=== PATIENT | male | born 1940 | race Caucasian/White ===

== ENCOUNTER → 2018-10-13 | Day surgery (SDC) | payer MEDICARE, OTHER ==
[2018-10-11 13:34] LABS: BASOPHILS % 0.5 % (0.0-1.0); EOSINOPHILS # (AUTO) 0.2 (0.0-0.4); EOSINOPHILS % 2.8 % (0.0-6.0); HEMOGLOBIN 14.7 g/dL (14.0-18.0); LYMPHOCYTES # (AUTO) 2.3 (1.0-3.2); LYMPHOCYTES % 27.9 % (18.0-39.1); MEAN CORPUSCULAR HEMOGLOBIN 31.5 pg (28-32); MEAN CORPUSCULAR VOLUME 90.1 fL (81-99); MONOCYTES # (AUTO) 1.1 (0.2-0.8); MONOCYTES % 13.7 % (4.4-11.3); NEUTROPHILS # (AUTO) 4.6 (2.1-6.9); NEUTROPHILS % 54.9 % (38.7-80.0); PLATELET COUNT 228 x10e3/uL (140-360); RED BLOOD COUNT 4.66 x10e6/uL (4.3-5.7); RED CELL DISTRIBUTION WIDTH 12.7 % (11.7-14.4)
[2018-10-11 13:39] LABS: INR 0.93; PARTIAL THROMBOPLASTIN TIME 30.9 seconds (23.8-35.5)
[2018-10-11 13:49] LABS: ALANINE AMINOTRANSFERASE 21 IU/L (0-55); ALBUMIN 3.9 g/dL (3.5-5.0); ALBUMIN/GLOBULIN RATIO 1.4 (0.8-2.0); ALKALINE PHOSPHATASE 62 IU/L (40-150); ANION GAP 12.4 mmol/L (8-16); BLOOD UREA NITROGEN 17 mg/dL (7-26); BUN/CREATININE RATIO 16 (6-25); CALCIUM 10.2 mg/dL (8.4-10.2); CARBON DIOXIDE 26 mmol/L (22-29); CHLORIDE 103 mmol/L (98-107); CREATININE, SERUM 1.08 mg/dL (0.72-1.25); EST GLOMERULAR FILTRATION RATE > 60 ML/MIN (60-); GLUCOSE 106 mg/dL (74-118); POTASSIUM 4.4 mmol/L (3.5-5.1); SODIUM 137 mmol/L (136-145)
[~2018-10-13] MED LIST: CALCIUM PO; FLAXSEED1000 MG PO; LYSINE1000 MG PO; MULTI-VITAMIN1 EACH PO; PROPOFOL IV EMULSION 10 MG/ML 50 ML VIAL ONE; SIMVASTATIN40 MG PO; VIT E PO; ZETIA10 MG PO
--- OUTSIDE RECORDS SUMMARY | 2018-10-13 06:22 | XMS REPORT | Continuity of Care Document ---
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 07/24/2014 [facility] BPH (<span ID="[id number]</span>) Active Problem 07/07/2018 [facility] [place], [place],[facility] Hypercholesterolemia Resolved Problem 07/07/2018 [facility] [place],[facility] Neuropathic pain Res[facility] [place] SYNCOPE AND COLLAPSE Active [facility] Medications Medication Details Route Status Patient Instructions Ordering Provider Order Date Source zinc sulfate 220 mg, 1 cap, Route: PO, Drug form: CAP, Daily, Start date: 05/28/17 9:00:00 ACTIVE DIRECTORY ARCHITECT, Duration: 30 day, Stop date: 06/26/17 9:00:00 CSTNotes: (Zinc sulfate capsule) - 220 mg Zinc sulfate=50 mg elemental zinc Same as Zinc Sulfate No Longer Active 05/28/2017 [facility] oxybutynin 10 mg, 1 tab, Route: PO, Drug form: ERTAB, Daily, Dosing Weight 77.756, kg, Start date: 05/28/17 9:00:00 ACTIVE DIRECTORY ARCHITECT, Duration: 30 day, Stop date: 06/26/17 9:00:00 CSTNotes: (Same as: Ditropan XL) "Do Not Crush" No Longer Active 05/28/2017 [facility] multivitamin 1 tab, Route: PO, Dosing Weight 77.756, kg, Daily, Start date: 05/28/17 9:00:00 ACTIVE DIRECTORY ARCHITECT, Duration: 30 day, Stop date: 06/26/17 9:00:00 ACTIVE DIRECTORY ARCHITECT No Longer Active 05/28/2017 [facility] Zinc Sulfate 140 mg, Route: PO, Daily, Dosing Weight 77.756, kg, Start date: 05/28/17 9:00:00 ACTIVE DIRECTORY ARCHITECT, Duration: 30 day, Stop date: 06/26/17 9:00:00 ACTIVE DIRECTORY ARCHITECT No Longer Active 05/28/2017 [facility] gabapentin 100 MG Oral Capsule 100 mg, 1 cap, Route: PO, Drug form: CAP, BID, Dosing Weight 77.756, kg, Start date: 05/27/17 17:00:00 ACTIVE DIRECTORY ARCHITECT, Duration: 30 day, Stop date: 06/26/17 9:00:00 CSTNotes: (Same as: Neurontin) Inactive 05/27/2017 [facility] aspirin 81 mg tablet, enteric coated 81 mg=1 tab, PO, Daily, # 100 tab, 0 Refill(s) Active 05/27/2017 [facility] multivitamin with minerals 1 tab, Route: PO, Drug Form: TAB, Daily, Start date: 05/27/17 10:00:00 ACTIVE DIRECTORY ARCHITECT, Duration: 30 day, Stop date: 06/26/17 9:00:00 CSTNotes: (Same as:Thera-M, Theragran-M) WASTE: F/P - Black; E - Municipal Trash Bin Give with food. Inactive 05/27/2017 [facility] gabapentin 100 MG Oral Capsule 100 mg=1 cap, PO, BID, # 90 cap, 1 Refill(s) Active 05/27/2017 [facility] Phenergan 12.5 mg, 50 mL, Route: IVPB, Drug form: SOLN, Q6H, Dosing Weight 77.756, kg, PRN Nausea, Start date: 05/26/17 18:30:00 ACTIVE DIRECTORY ARCHITECT, Duration: 30 day, Stop date: 06/25/17 18:29:00 ACTIVE DIRECTORY ARCHITECT No Longer Active 05/27/2017 [facility] Docusate 100 mg, 1 cap, Route: PO, Drug form: CAP, BID, Dosing Weight 81.818, kg, Start date: 05/26/17 17:00:00 ACTIVE DIRECTORY ARCHITECT, Duration: 30 day, Stop date: 06/25/17 9:00:00 CSTNotes: (Same as: Colace) (Do Not Crush) No Longer Active 05/26/2017 [facility] Aspirin 81 mg, 1 tab, Route: PO, Drug form: ECTAB, Daily, Dosing Weight 81.818, kg, Start date: 05/26/17 16:30:00 ACTIVE DIRECTORY ARCHITECT, Duration: 30 day, Stop date: 06/25/17 9:00:00 CSTNotes: Do not crush or chew. (Same As: Ecotrin) No Longer Active 05/26/2017 [facility] Metoprolol 5 mg, 5 mL, Route: IVP, Drug form: INJ, Q6H, Dosing Weight 81.818, kg, PRN Tachycardia, Start date: 05/26/17 15:01:00 ACTIVE DIRECTORY ARCHITECT, Duration: 30 day, Stop date: 06/25/17 15:00:00 CSTNotes: (Same as: Lopressor) Push over 2 minutes No Longer Active 05/26/2017 [facility] Hydralazine 10 mg, 0.5 mL, Route: IVP, Drug form: INJ, Q4H, Dosing Weight 81.818, kg, PRN Hypertension, Start date: 05/26/17 15:01:00 ACTIVE DIRECTORY ARCHITECT, Duration: 30 day, Stop date: 06/25/17 15:00:00 CSTNotes: (Same as: Apres oline) Push over 5 minutes No Longer Active 05/26/2017 [facility] Nitroglycerin 0.4 MG Sublingual Tablet 0.4 mg, 1 tab, Route: SL, Drug form: TAB, Q5Min, Dosing Weight 81.818, kg, PRN Chest Pain, Start date: 05/26/17 15:01:00 ACTIVE DIRECTORY ARCHITECT, Duration: 30 day, Stop date: 06/25/17 15:00:00 CSTNotes: (Same as:Nitroquick, Nitrostat) "Do Not Crush" Sublingual tablet No Longer Active 05/26/2017 [facility] Ondansetron 4 mg, 2 mL, Route: IVP, Drug form: INJ, Q6H, Dosing Weight 81.818, kg, PRN Nausea & Vomiting, Start date: 05/26/17 14:18:00 ACTIVE DIRECTORY ARCHITECT, Duration: 30 day, Stop date: 06/25/17 14:17:00 CSTNotes: (Same as: Anthony) MEDICATION WASTE Product Size: 4 mg Product Wasted: ___ mg No Longer Active 05/26/2017 [facility] Morphine 2 mg, 1 mL, Route: IVP, Drug form: SOLN, Q4H, Dosing Weight 81.818, kg, PRN Pain Score 7-10, Start date: 05/26/17 14:18:00 ACTIVE DIRECTORY ARCHITECT, Duration: 30 day, Stop date: 06/25/17 14:17:00 ACTIVE DIRECTORY ARCHITECT No Longer Active 05/26/2017 [facility] Acetaminophen 325 MG / Hydrocodone Bitartrate 5 MG Oral Tablet 1 tab, Route: PO, Drug Form: TAB, Dosing Weight 81.818, kg, Q4H, PRN Pain Score 4-6, Start date: 05/26/17 14:18:00 ACTIVE DIRECTORY ARCHITECT, Duration: 30 day, Stop date: 06/25/17 14:17:00 CSTNotes: (Same as: Gatzke 325/5) Do not exceed 4gm/day of acetaminophen. No Longer Active 05/26/2017 [facility] Acetaminophen 650 mg, 2 tab, Route: PO, Drug form: TAB, Q4H, Dosing Weight 81.818, kg, PRN Pain 1-3/Temp > 100.4 F, Start date: 05/26/17 14:18:00 ACTIVE DIRECTORY ARCHITECT, Duration: 30 day, Stop date: 06/25/17 14:17:00 CSTNotes: Do not exceed 4 gm/day. (Same as: Tylenol) No Longer Active 05/26/2017 [facility] NS (Bolus) IV 1,000 mL, 1,000 ml/hr, Infuse Over: 1 hr, Route: IV, 1,000, Drug form: INJ, ONCE, Priority: STAT, Dosing Weight 81.818 kg, Start date: 05/26/17 12:04:00 ACTIVE DIRECTORY ARCHITECT, Stop date: 05/26/17 12:04:00 ACTIVE DIRECTORY ARCHITECT Inactive 05/26/2017 [facility] Acetaminophen 300 MG / Codeine Phosphate 30 MG Oral Tablet [Tylenol with Codeine #3] 1 - 2 tab, PO, Q4H, PRN Pain, X 2 day, # 20 tab, 0 Refill(s) No Longer Active 01/30/2016 [facility] Phenazopyridine hydrochloride 200 MG Oral Tablet [Pyridium] 200 mg=1 tab, PO, Q6H, PRN Dysuria, X 7 day, # 28 tab, 1 Refill(s) Active 01/30/2016 [facility] Phenazopyridine hydrochloride 200 MG Oral Tablet [Pyridium] 200 mg=1 tab, PO, Q6H, PRN Dysuria, # 28 tab, 1 Refill(s) Inactive 01/30/2016 [facility] oxybutynin 10 mg oral tablet, extended release 10 mg=1 tab, PO, Daily, # 30 tab, 1 Refill(s) Active 01/30/2016 [facility] Acetaminophen 300 MG / Codeine Phosphate 30 MG Oral Tablet [Tylenol with Codeine #3] 1 - 2 tab, PO, Q4H, PRN Pain, # 20 tab, 0 Refill(s) Inactive 01/30/2016 [facility] ondansetron (ANES) Route: IV, Drug form: INJ, ONCE, Stop date: 01/30/16 11:11:00 CDT Inactive 01/30/2016 [facility] ciprofloxacin (ANES) Route: IV, Drug form: INJ, ONCE, Stop date: 01/30/16 11:11:00 CDT Inactive 01/30/2016 [facility] lidocaine (ANES) Route: IV, Drug form: INJ, ONCE, Stop date: 01/30/16 11:11:00 CDT Inactive 01/30/2016 [facility] dexamethasone (ANES) Route: IV, Drug form: INJ, ONCE, Stop date: 01/30/16 11:11:00 CDT Inactive 01/30/2016 [facility] midazolam (ANES) Route: IV, Drug form: SOLN, ONCE, Stop date: 01/30/16 11:06:00 CDT Inactive 01/30/2016 [facility] propofol (ANES) Route: IV, Drug form: INJ, ONCE, Stop date: 01/30/16 11:06:00 CDT Inactive 01/30/2016 [facility] fentaNYL (ANES) Route: IV, Drug form: INJ, ONCE, Stop date: 01/30/16 11:06:00 CDT Inactive 01/30/2016 [facility] acetaminophen (ANES) (ANES) Route: IV, Drug form: INJ, Start date: 01/30/16 10:35:00 CDT, Stop date: 01/30/16 11:35:00 CDT Inactive 01/30/2016 [facility] LR 1000 mL INJ (ANES) Route: IV, Total Volume: 1,000, Start date: 01/30/16 10:17:00 CDT, Stop date: 01/30/16 11:17:00 CDT Inactive 01/30/2016 [facility] Calcium Chloride 0.0014 MEQ/ML / Potassium Chloride 0.004 MEQ/ML / Sodium Chloride 0.103 MEQ/ML / Sodium Lactate 0.028 MEQ/ML Injectable Solution 1,000 mL, Rate: 25 ml/hr, Infuse over: 40 hr, Route: IV, Dosing Weight 81.818 kg, Total Volume: 1,000, Start date: 01/30/16 9:26:00 CDT, Duration: 30 day, Stop date: 02/29/16 9:25:00 CDT Inactive 01/30/2016 [facility] Fish Oil PO, 0 Refill(s) Active 01/23/2016 [facility] Lysine 1,000 mg, PO, Daily, 0 Refill(s) Active 01/23/2016 [facility] Zinc 140 mg, PO, Daily, 0 Refill(s) Active 01/23/2016 [facility] Calcium 500+D 1 tab, CHEW, BID, 0 Refill(s) Active 01/23/2016 [facility] multivitamin Daily, 0 Refill(s) Active 01/23/2016 [facility] Metronidazole 0.0075 MG/MG Topical Gel 0 Refill(s) Active 01/23/2016 [facility] tamsulosin 0.4 mg oral capsule 0.4 mg=1 cap, PO, Daily, # 30 cap, 0 Refill(s) Active 01/23/2016 [facility] Simvastatin PO, Bedtime, 0 Refill(s) Active 01/23/2016 [facility] Allergies, Adverse Reactions, Alerts Substance Category Reaction Severity Reaction type Status Date Reported Comments Source Immunizations Immunization Date Given Site Status Last Updated Comments Source Results Order Name Results Value Reference Range Date Interpretation Comments Source Neck CTA Neck CTA Clinical Indication: I65.23 Occlusion and stenosis of bilateral carotid arteries - 78-year-old male with syncope and memory difficulties. Comparison: Carotid artery Doppler 06/28/2018. TECHNIQUE: Sequential trans-axial images of the neck were obtained with a multi- detector helical CT after iodinated contrast administration. Coronal and sagittal reconstructions and were obtained, along with 3D post-processing imaging for exam interpretation. CONTRAST: 100 cc of IV Omnipaque contrast material was used for the exam. CT Radiation Dose DLP 1335.23 mGy-cm FINDINGS: CTA NECK: VASCULAR EVALUATION: The origins of the great vessels and visualized upper thoracic aortic arch are unremarkable. The common carotid arteries are patent bilaterally. The left carotid bulb is located at the disc space level of C2-C3 and the right carotid bulb is located at the disc space level of C3-C4. The proximal left internal carotid artery narrows to 2.7 mm just beyond its origin for a 40% stenosis. The entire right internal carotid artery has a caliber below 3 mm. The external carotid artery origins are patent. The cervical internal carotid arteries are patent. The right internal carotid artery caliber diameter is 2.7 mm and the left internal carotid artery caliber diameter is 4.4 mm in the distal internal carotid artery. There is no significant stenosis by NASCET criteria. Bilateral cervical segments of the vertebral arteries are widely patent. The source images show no evidence of dissections. If there is further concern, recommend conventional angiography for complete assessment. Any reported ICA stenosis directly references the distal internal carotid diameter as the denominator for stenosis measurement. NON-VASCULAR STRUCTURES: Mild patchy mucosal thickening is seen in the paranasal sinuses. IMPRESSION: No significant stenosis of the carotid arteries is seen by NASCET criteria. SL: [id number] 07/05/2018 - - Read by: Víctor Shore MD Dictated Date/time: 07/05/18 14:55 Electronically Signed by: Víctor Shore MD 07/05/18 15:09 FINAL REPORT [facility] Carotid artery Doppler bilat US Carotid artery Doppler bilat US Clinical Indication: - chronic arterial ischemic stroke Comparison: Comparison is made to carotid artery ultrasound examination dated 05/26/2017. TECHNIQUE: Hoskins-scale, color Doppler and spectral Doppler of the carotid arteries was performed. NASCET criteria were utilized for interpretation purposes. FINDINGS: RIGHT: Mild echogenic, calcified atherosclerotic plaque identified at the right carotid bulb. ICA PSV 85.6 cm/sec CCA PSV 86.8 cm/sec ICA/CCA ratio 0.94 Vertebral flow is antegrade. External carotid artery is patent. LEFT: Echogenic, calcified atherosclerotic plaque present at the left carotid bulb with extension into the proximal, mid, and distal portions of the left internal carotid artery. ICA PSV 100 cm/sec CCA PSV 114 cm/sec ICA/CCA ratio 0.87 Vertebral flow is antegrade. The left external carotid artery is not clearly visualized on this exam. IMPRESSION: RIGHT: No hemodynamically significant stenosis at the right internal carotid artery by NASCET criteria. LEFT: No hemodynamically significant stenosis at the left internal carotid artery by NASCET criteria. Nonvisualization of the left external carotid artery on this examination. Consensus panel Doppler US criteria for diagnosis of ICA stenosis: Stenosis (%) ICA PSV (cm/sec) ICA/CCA ratio <50 <125 <2.0 50-69 125-230 2.0-4.0 >70 but less than >230 >4.0 near occlusion Near occlusion High, low, or Variable undetectable SL: [id number] 06/28/2018 - - Read by: Tyler Barton MD Dictated Date/time: 06/28/18 11:23 Electronically Signed by: Tyler Barton MD 06/28/18 11:51 FINAL REPORT [facility] [place] Brain wo contrast MRI Brain wo contrast MRI Patient Name: JERARDO MCNEILL. : 1940; Age: 78 years y/o; Male. MR: [id number]. Ordering Physician: Merissa Amaya MD. MRI BRAIN WITHOUT CONTRAST: HISTORY: Cerebral infarction, memory loss, skin cancer. COMPARISON: MRI brain 05/26/2017. FINDINGS: Multiplanar multisequence MR imaging of the brain was performed without the intravenous administration of gadolinium based contrast. There is prominence of the ventricles, cortical sulci and basilar cisterns compatible with age related involutional changes. Stable periventricular and subcortical T2/FLAIR white matter hyperintensities are compatible with stable age-related small vessel microvascular changes. Stable old bilateral basal ganglia lacunar infarcts suspected. There is no evidence of midline shift, mass lesion, intraparenchymal hemorrhage or extra-axial collections. There is no evidence of restricted diffusion to suggest acute infarction. The posterior fossa is unremarkable. The craniocervical junction is within normal limits. The flow-voids at the skull base are unremarkable. The partially visualized orbits, paranasal sinuses and mastoid air cells are unremarkable. IMPRESSION: 1. No evidence of acute intracranial pathology. No interval change since the MRI brain of 05/26/2017. 2. Age related involutional and small vessel microvascular changes as described. Stable old bilateral basal ganglia lacunar infarcts suspected. SL: [id number] 06/28/2018 - - Read by: Gokul Madden MD Dictated Date/time: 06/28/18 11:03 Electronically Signed by: Gokul Madden MD 06/28/18 11:09 FINAL REPORT [facility] CHEM PANEL eGFR 66 mL/min/1.73m2 05/27/2017 Result Comment: The eGFR is calculated using the CKD-EPI formula. In most young, healthy individuals the eGFR will be >90 mL/min/1.73m2. The eGFR declines with age. An eGFR of 60-89 may be normal in some populations, particularly the elderly, for whom the CKD-EPI formula has not been extensively validated. Use of the eGFR is not recommended in the following populations: Individuals with unstable creatinine concentrations, including patients and those with serious co-morbid conditions. Patients with extremes in muscle mass or diet. The data above are obtained from the National Kidney Disease Education Program (NKDEP) which additionally recommends that when the eGFR is used in patients with extremes of body mass index for purposes of drug dosing, the eGFR should be multiplied by the estimated BMI. [facility] CHEM PANEL Creatinine Lvl 1.09 mg/dL 0.50 - 1.40 05/27/2017 [facility] CHEM PANEL BUN 20 mg/dL 7 - 22 05/27/2017 [facility] CHEM PANEL Sodium Lvl 141 meq/L 135 - 145 05/27/2017 [facility] CHEM PANEL Calcium Lvl 8.2 mg/dL 8.5 - 10.5 05/27/2017 [facility] CHEM PANEL AGAP 12.0 meq/L 10.0 - 20.0 05/27/2017 [facility] CHEM PANEL CO2 27 meq/L 24 - 32 05/27/2017 [facility] CHEM PANEL Potassium Lvl 4.0 meq/L 3.5 - 5.1 05/27/2017 [facility] CHEM PANEL Chloride Lvl 106 meq/L 95 - 109 05/27/2017 [facility] CHEM PANEL Glucose Lvl 147 mg/dL 70 - 99 05/27/2017 [facility] CHEM PANEL Magnesium Lvl 2.0 mg/dL 1.8 - 2.4 05/27/2017 [facility] HEMATOLOGY MCH 32.3 pg 27.0 - 31.0 05/27/2017 [facility] HEMATOLOGY RDW 13.5 % 11.5 - 14.5 05/27/2017 [facility] HEMATOLOGY Platelet 183 K/CMM 133 - 450 05/27/2017 [facility] HEMATOLOGY MCHC 35.3 g/dL 32.0 - 36.0 05/27/2017 [facility] HEMATOLOGY MPV 6.9 fL 7.4 - 10.4 05/27/2017 [facility] HEMATOLOGY RBC 4.62 M/CMM 4.70 - 6.10 05/27/2017 [facility] HEMATOLOGY Hct 42.3 % 42.0 - 54.0 05/27/2017 [facility] HEMATOLOGY MCV 91.5 fL 80.0 - 94.0 05/27/2017 [facility] HEMATOLOGY Hgb 14.9 g/dL 14.0 - 18.0 05/27/2017 [facility] HEMATOLOGY WBC 9.2 K/CMM 3.7 - 10.4 05/27/2017 [facility] HEMATOLOGY Segs 75.4 % 45.0 - 75.0 05/27/2017 [facility] HEMATOLOGY Monocytes 13.7 % 2.0 - 12.0 05/27/2017 [facility] HEMATOLOGY Lymphocytes 10.3 % 20.0 - 40.0 05/27/2017 [facility] HEMATOLOGY Eosinophils 0.4 % 0.0 - 4.0 05/27/2017 [facility] HEMATOLOGY Basophils 0.2 % 0.0 - 1.0 05/27/2017 [facility] HEMATOLOGY Lymphocytes # 0.9 K/CMM 1.0 - 5.5 05/27/2017 [facility] HEMATOLOGY Segs-Bands # 6.9 K/CMM 1.5 - 8.1 05/27/2017 [facility] HEMATOLOGY Monocytes # 1.3 K/CMM 0.0 - 0.8 05/27/2017 [facility] LIPIDS Trig 90 mg/dL <=149 mg/dL 05/27/2017 [facility] LIPIDS Chol 186 mg/dL <=199 mg/dL 05/27/2017 [facility] LIPIDS HDL 57 mg/dL >=61 mg/dL 05/27/2017 [facility] LIPIDS CHD Risk 3.26 4.00 - 7.30 05/27/2017 [facility] LIPIDS LDL (Calculated) 111 mg/dL <=99 mg/dL 05/27/2017 [facility] LIPIDS VLDL 18 05/27/2017 [facility] SPECIAL CHEMISTRY Hgb A1C 6.3 % <=5.6 % 05/27/2017 [facility] CHEM PANEL Lactic Acid Lvl 1.5 mMol/L 0.5 - 2.2 05/27/2017 [facility] URINE AND STOOL UA Glucose Negative mg/dL Negative mg/dL 05/26/2017 [facility] URINE AND STOOL UA Bili Negative *NA* (05/26/17 1:30 PM) Negative 05/26/2017 [facility] URINE AND STOOL UA Ketones Negative mg/dL Negative mg/dL 05/26/2017 [facility] URINE AND STOOL UA pH 5.0 5.0 - 8.0 05/26/2017 [facility] URINE AND STOOL UA Blood Negative (05/26/17 1:30 PM) Negative 05/26/2017 [facility] URINE AND STOOL UA Mucus Many /LPF None Seen /LPF 05/26/2017 [facility] URINE AND STOOL UA RBC 2 /HPF 0 - 2 05/26/2017 [facility] URINE AND STOOL UA Protein 30 mg/dL Negative mg/dL 05/26/2017 [facility] URINE AND STOOL UA Leuk Est Negative (05/26/17 1:30 PM) Negative 05/26/2017 [facility] URINE AND STOOL UA Nitrite Negative (05/26/17 1:30 PM) Negative 05/26/2017 [facility] URINE AND STOOL UA WBC 3 /HPF 0 - 5 05/26/2017 [facility] URINE AND STOOL UA Sq Epi Occasional /LPF Few /LPF 05/26/2017 [facility] URINE AND STOOL UA Urobilinogen <=1.0 mg/dL 0.1 - 1.0 05/26/2017 [facility] URINE AND STOOL UA Color Jocelynn *ABN* (05/26/17 1:30 PM) Yellow 05/26/2017 [facility] URINE AND STOOL UA Turbidity Clear (05/26/17 1:30 PM) Clear 05/26/2017 [facility] URINE AND STOOL UA Spec Grav 1.030 <=1.030 05/26/2017 [facility] CARDIAC ENZYMES Troponin-I null 0.00 - 0.40 05/26/2017 [facility] CARDIAC ENZYMES CK MB Index 1.9 0.0 - 2.5 05/26/2017 [facility] CARDIAC ENZYMES CK MB 1.7 ng/mL 0.5 - 3.6 05/26/2017 [facility] CARDIAC ENZYMES Total CK 89 unit/L 12 - 191 05/26/2017 [facility] CHEM PANEL Magnesium Lvl 2.0 mg/dL 1.8 - 2.4 05/26/2017 [facility] CHEM PANEL eGFR 46 mL/min/1.73m2 05/26/2017 Result Comment: The eGFR is calculated using the CKD-EPI formula. In most young, healthy individuals the eGFR will be >90 mL/min/1.73m2. The eGFR declines with age. An eGFR of 60-89 may be normal in some populations, particularly the elderly, for whom the CKD-EPI formula has not been extensively validated. Use of the eGFR is not recommended in the following populations: Individuals with unstable creatinine concentrations, including patients and those with serious co-morbid conditions. Patients with extremes in muscle mass or diet. The data above are obtained from the National Kidney Disease Education Program (NKDEP) which additionally recommends that when the eGFR is used in patients with extremes of body mass index for purposes of drug dosing, the eGFR should be multiplied by the estimated BMI. [facility] CHEM PANEL Calcium Lvl 8.7 mg/dL 8.5 - 10.5 05/26/2017 [facility] CHEM PANEL Creatinine Lvl 1.46 mg/dL 0.50 - 1.40 05/26/2017 [facility] CHEM PANEL CO2 25 meq/L 24 - 32 05/26/2017 [facility] CHEM PANEL Chloride Lvl 104 meq/L 95 - 109 05/26/2017 [facility] CHEM PANEL Sodium Lvl 139 meq/L 135 - 145 05/26/2017 [facility] CHEM PANEL Potassium Lvl 3.9 meq/L 3.5 - 5.1 05/26/2017 [facility] CHEM PANEL BUN 24 mg/dL 7 - 22 05/26/2017 [facility] CHEM PANEL Glucose Lvl 182 mg/dL 70 - 99 05/26/2017 [facility] CHEM PANEL AGAP 13.9 meq/L 10.0 - 20.0 05/26/2017 [facility] CHEM PANEL Lactic Acid Lvl 3.1 mMol/L 0.5 - 2.2 05/26/2017 [facility] HEMATOLOGY MCH 31.5 pg 27.0 - 31.0 05/26/2017 [facility] HEMATOLOGY MPV 6.8 fL 7.4 - 10.4 05/26/2017 [facility] HEMATOLOGY Hgb 16.0 g/dL 14.0 - 18.0 05/26/2017 [facility] Hct 46.7 % 42.0 - 54.0 05/26/2017 [facility] RBC 5.09 M/CMM 4.70 - 6.10 05/26/2017 [facility] WBC 15.1 K/CMM 3.7 - 10.4 05/26/2017 [facility] RDW 13.4 % 11.5 - 14.5 05/26/2017 [facility] Platelet 239 K/CMM 133 - 450 05/26/2017 [facility] MCHC 34.3 g/dL 32.0 - 36.0 05/26/2017 [facility] MCV 91.7 fL 80.0 - 94.0 05/26/2017 [facility] RBC Morph Normal (05/26/17 1:03 PM) 05/26/2017 [facility] Basophils 0.2 % 0.0 - 1.0 05/26/2017 [facility] Plt Morph Normal (05/26/17 1:03 PM) 05/26/2017 [facility] Lymphocytes 2.3 % 20.0 - 40.0 05/26/2017 [facility] Segs 91.4 % 45.0 - 75.0 05/26/2017 [facility] Lymphocytes # 0.3 K/CMM 1.0 - 5.5 05/26/2017 [facility] Monocytes # 0.9 K/CMM 0.0 - 0.8 05/26/2017 [facility] Segs-Bands # 13.8 K/CMM 1.5 - 8.1 05/26/2017 [facility] Monocytes 6.0 % 2.0 - 12.0 05/26/2017 [facility] Eosinophils 0.1 % 0.0 - 4.0 05/26/2017 [facility] Brain wo contrast MRI Brain wo contrast MRI EXAM: MRI BRAIN WITHOUT CONTRAST DATE: 05/26/2017 5:39 PM ACTIVE DIRECTORY ARCHITECT INDICATION: Ataxia. COMPARISON: CT brain dated 05/26/2017. TECHNIQUE: Multiplanar, multisequence MRI imaging of the brain was acquired without intravenous contrast. FINDINGS: The examination is limited by motion artifact. No acute intracranial hemorrhage, midline shift, or mass effect is identified. Few scattered areas of T2/FLAIR signal abnormality are noted within the supratentorial white matter and gail, consistent with chronic microangiopathic changes. Old lacunar infarcts are noted within the basal ganglia bilaterally. The ventricles and sulci are prominent, without evidence for hydrocephalus. No evidence for restricted diffusion is present to suggest an acute infarct. There is no abnormal gradient susceptibility artifact. The orbits, paranasal sinuses, and mastoid air cells are unremarkable. The major intracranial flow voids are maintained. IMPRESSION: 1. No acute intracranial ischemia or infarction. 2. Mild chronic microangiopathic changes and diffuse parenchymal volume loss. 3. Old lacunar infarcts within the basal ganglia bilaterally. SL: [id number] 05/26/2017 - - Read by: Maikel Saba MD Dictated Date/time: 05/26/17 18:41 Electronically Signed by: Maikel Saba MD 05/26/17 18:46 FINAL REPORT [facility] Carotid artery Doppler bilat US Carotid artery Doppler bilat US Clinical Indication: - syncope; Comparison: None TECHNIQUE: Hoskins-scale, color Doppler and spectral Doppler of the carotid arteries was performed. Any reported ICA stenoses indirectly reference the distal internal carotid diameter as the denominator for the stenosis measurement, utilizing consensus panel criteria. FINDINGS: RIGHT: Mild atherosclerotic plaque is present in the distal common carotid artery and proximal internal carotid artery. ICA PSV 118 cm/sec CCA PSV 94.2 cm/sec ICA/CCA ratio 1.2 Vertebral flow is antegrade. External carotid artery is patent. LEFT: Mild atherosclerotic plaque is present in the mid to distal common carotid artery and proximal internal carotid artery. ICA PSV 136 cm/sec CCA PSV 113 cm/sec ICA/CCA ratio 1.2 Vertebral flow is antegrade. External carotid artery is patent. IMPRESSION: 1. RIGHT: ICA stenosis <50 % by velocity criteria. 1. LEFT: ICA stenosis 50-69 % by velocity criteria. Consensus panel Doppler US criteria for diagnosis of ICA stenosis: Stenosis (%) ICA PSV (cm/sec) ICA/CCA ratio <50 <125 <2.0 50-69 125-230 2.0-4.0 >70 but less than >230 >4.0 near occlusion Near occlusion High, low, or Variable undetectable SL: [id number] 05/26/2017 - - Read by: Stephie Degroot MD Dictated Date/time: 05/26/17 16:42 Electronically Signed by: Stephie Degroot MD 05/26/17 16:47 FINAL REPORT [facility] Brain wo contrast CT Brain wo contrast CT Study: Brain wo contrast CT 05/26/2017 12:04 PM ACTIVE DIRECTORY ARCHITECT Ordering Physician: [place] MD Clinical Indication: 77-year-old with loss of consciousness. Syncope and fall. Past medical history significant for hypercholesterolemia. Comparison: None TECHNIQUE: CT images are obtained from the foramen magnum to the vertex on a multidetector CT. Sagittal and coronal reformats are acquired. CT radiation dose DLP: 1140 mGy-cm. FINDINGS: Ventricles, sulci and basal cisterns are within normal limits for age. The hoskins- white junction is intact. 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 Heavy bilateral cavernous internal carotid artery calcifications are seen. There is no evidence for intracranial mass, mass effect or extra-axial fluid collection. There are no pathologic parenchymal or leptomeningeal enhancements. The skull is intact. Mild mucosal thickening is present along ethmoid septations bilaterally. Mastoid air cells are clear. Orbital structures are grossly unremarkable. 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 No acute intracranial pathology is seen. SL: [id number] 05/26/2017 - - Read by: Teresa Dominguez MD Dictated Date/time: 05/26/17 12:47 Electronically Signed by: Teresa Dominguez MD 05/26/17 12:53 FINAL REPORT [facility] Spine cervical wo contrast CT Spine cervical wo contrast CT Spine cervical wo contrast CT CLINICAL HX: Trauma - syncope, fall; COMPARISON: none TECHNIQUE: Contiguous transaxial 2.5 mm images were obtained through the cervical spine. Images were reformatted in sagittal and coronal projections. FINDINGS: BONES: There is no evidence for fracture or subluxation. The alignment on the sagittal and coronal reformations is within normal limits. There is mild to moderate multilevel spondylosis, facet arthrosis and degenerative disc disease noted in the cervical spine. Mild to moderate foraminal stenosis is present at various levels. No significant central canal narrowing is noted. NECK SOFT TISSUES: The prevertebral soft tissues are within normal limits. Airway and lung apices: Visualized portion of the lung apices and airway are clear. IMPRESSION: No significant acute abnormality is noted on the cervical spine CT. SL: [id number] 05/26/2017 - - Read by: Fran Lopez MD Dictated Date/time: 05/26/17 12:49 Electronically Signed by: Fran Lopez MD 05/26/17 12:54 FINAL REPORT [facility] Chest 2 views DX Chest 2 views DX Two-view chest Patient Name: JERARDO MCNEILL : 1940; Age: 77 years Male MR: [id number] Study: Chest 2 views DX Order Time: 05/26/2017 12:04 PM ACTIVE DIRECTORY ARCHITECT Clinical Indication: Chest pain - syncope, fall. COMPARISON: None FINDINGS: Views: 2 LUNGS: There is normal lung volume. There are no suspicious interstitial/airspace opacities. There are no pleural effusions. There is no pneumothorax. The pulmonary vasculature is normal. MEDIASTINUM: The cardiac silhouette is normal. The trachea is midline. BONES: There are no clinically significant osseous abnormalities noted. IMPRESSION: No radiographic evidence of acute pulmonary disease. SL: [id number] 05/26/2017 - - Read by: Andreas Rowan MD Dictated Date/time: 05/26/17 12:49 Electronically Signed by: Andreas Rowan MD 05/26/17 12:50 FINAL REPORT [facility] eGFR 65 mL/min/1.73m2 01/23/2016 Result Comment: The eGFR is calculated using the CKD-EPI formula. In most young, healthy individuals the eGFR will be >90 mL/min/1.73m2. The eGFR declines with age. An eGFR of 60-89 may be normal in some populations, particularly the elderly, for whom the CKD-EPI formula has not been extensively validated. Use of the eGFR is not recommended in the following populations: Individuals with unstable creatinine concentrations, including patients and those with serious co-morbid conditions. Patients with extremes in muscle mass or diet. The data above are obtained from the National Kidney Disease Education Program (NKDEP) which additionally recommends that when the eGFR is used in patients with extremes of body mass index for purposes of drug dosing, the eGFR should be multiplied by the estimated BMI. [facility] CHEM PANEL CO2 28 meq/L 24 - 32 01/23/2016 [facility] CHEM PANEL Potassium Lvl 3.9 meq/L 3.5 - 5.1 01/23/2016 [facility] CHEM PANEL Chloride Lvl 103 meq/L 95 - 109 01/23/2016 [facility] CHEM PANEL Calcium Lvl 8.9 mg/dL 8.5 - 10.5 01/23/2016 [facility] CHEM PANEL BUN 20 mg/dL 7 - 22 01/23/2016 [facility] CHEM PANEL Glucose Lvl 95 mg/dL 70 - 99 01/23/2016 [facility] CHEM PANEL Sodium Lvl 138 meq/L 135 - 145 01/23/2016 [facility] CHEM PANEL Creatinine Lvl 1.12 mg/dL 0.50 - 1.40 01/23/2016 [facility] CHEM PANEL AGAP 10.9 meq/L 10.0 - 20.0 01/23/2016 [facility] CHEM PANEL Globulin 3.9 g/dL 2.7 - 4.2 01/23/2016 [facility] CHEM PANEL Bili Indirect 0.7 mg/dL 0.0 - 1.0 01/23/2016 [facility] CHEM PANEL A/G Ratio 0.9 0.7 - 1.6 01/23/2016 [facility] CHEM PANEL ALT 25 unit/L 0 - 65 01/23/2016 [facility] CHEM PANEL Albumin Lvl 3.5 g/dL 3.5 - 5.0 01/23/2016 [facility] CHEM PANEL Total Protein 7.4 g/dL 6.4 - 8.4 01/23/2016 [facility] CHEM PANEL Bili Direct 0.2 mg/dL 0.0 - 0.3 01/23/2016 [facility] CHEM PANEL Alk Phos 67 unit/L 39 - 136 01/23/2016 [facility] CHEM PANEL AST 19 unit/L 0 - 37 01/23/2016 [facility] CHEM PANEL Bili Total 0.9 mg/dL 0.2 - 1.3 01/23/2016 [facility] HEMATOLOGY PTT 35.5 s 22.9 - 35.8 01/23/2016 [facility] HEMATOLOGY PT 14.0 s 12.0 - 14.7 01/23/2016 [facility] HEMATOLOGY INR 1.05 0.85 - 1.17 01/23/2016 [facility] HEMATOLOGY RDW 12.8 % 11.5 - 14.5 01/23/2016 [facility] HEMATOLOGY MPV 7.0 fL 7.4 - 10.4 01/23/2016 [facility] HEMATOLOGY MCHC 34.4 g/dL 32.0 - 36.0 01/23/2016 [facility] HEMATOLOGY Platelet 198 K/CMM 133 - 450 01/23/2016 [facility] HEMATOLOGY RBC 4.66 M/CMM 4.70 - 6.10 01/23/2016 [facility] HEMATOLOGY Hct 42.5 % 42.0 - 54.0 01/23/2016 [facility] Hgb 14.6 g/dL 14.0 - 18.0 01/23/2016 [facility] WBC 8.4 K/CMM 3.7 - 10.4 01/23/2016 [facility] MCH 31.4 pg 27.0 - 31.0 01/23/2016 [facility] HEMATOLOGY MCV 91.2 fL 80.0 - 94.0 01/23/2016 [facility] HEMATOLOGY Eosinophils 2.7 % 0.0 - 4.0 01/23/2016 [facility] HEMATOLOGY Basophils 0.5 % 0.0 - 1.0 01/23/2016 [facility] HEMATOLOGY Monocytes 16.9 % 2.0 - 12.0 01/23/2016 [facility] Segs-Bands # 4.7 K/CMM 1.5 - 8.1 01/23/2016 [facility] Lymphocytes # 2.1 K/CMM 1.0 - 5.5 01/23/2016 [facility] Monocytes # 1.4 K/CMM 0.0 - 0.8 01/23/2016 [facility] Segs 55.5 % 45.0 - 75.0 01/23/2016 [facility] Lymphocytes 24.4 % 20.0 - 40.0 01/23/2016 [facility] HEMATOLOGY Eosinophils # 0.2 K/CMM 0.0 - 0.5 01/23/2016 [facility] URINE AND STOOL UA Turbidity Clear (01/23/16 12:03 PM) Clear 01/23/2016 [facility] URINE AND STOOL UA Color Yellow *NA* (01/23/16 12:03 PM) Yellow 01/23/2016 [facility] URINE AND STOOL UA Spec Grav 1.019 <=1.030 01/23/2016 [facility] URINE AND STOOL UA Glucose Negative mg/dL Negative mg/dL 01/23/2016 [facility] URINE AND STOOL UA Ketones Negative mg/dL Negative mg/dL 01/23/2016 [facility] URINE AND STOOL UA Bili Negative *NA* (01/23/16 12:03 PM) Negative 01/23/2016 [facility] URINE AND STOOL UA Protein Negative mg/dL Negative mg/dL 01/23/2016 [facility] URINE AND STOOL UA Leuk Est Small *ABN* (01/23/16 12:03 PM) Negative 01/23/2016 [facility] URINE AND STOOL UA Blood Negative (01/23/16 12:03 PM) Negative 01/23/2016 [facility] URINE AND STOOL UA Nitrite Negative (01/23/16 12:03 PM) Negative 01/23/2016 [facility] URINE AND STOOL UA pH 6.0 5.0 - 8.0 01/23/2016 [facility] URINE AND STOOL UA Amorph Laly Occasional /HPF None Seen /HPF 01/23/2016 [facility] URINE AND STOOL UA Bacteria Many /HPF None Seen /HPF 01/23/2016 [facility] URINE AND STOOL UA Mucus Few /LPF None Seen /LPF 01/23/2016 [facility] URINE AND STOOL UA WBC 47 /HPF 0 - 5 01/23/2016 [facility] URINE AND STOOL UA RBC 1 /HPF 0 - 2 01/23/2016 [facility] URINE AND STOOL UA Urobilinogen <=1.0 mg/dL 0.1 - 1.0 01/23/2016 [facility] URINE AND STOOL UA Sq Epi None Seen 01/23/2016 [facility] Abdomen w/wo IV contrast CT Abdomen w/wo IV contrast CT EXAM: CT ABDOMEN WITH AND WITHOUT IV CONTRAST RENAL MASS PROTOCOL DATE: Aug 03, 2014 09:10:00 AM CLINICAL INDICATIONS: Renal cysts. TECHNIQUE: Multiple helical of abdomen after the administration of intravenous and oral contrast. Axial, sagittal and coronal reformats are provided. Precontrast , delayed, and portal venous images through the abdomen were acquired. COMPARISON: None available. FINDINGS: Bilateral lung bases are clear without pleural effusions. There is a 1.4 x 1.6 x 1.9 cm left renal interpolar exophytic hyperdense lesion with measures 72 Hounsfield units on precontrast, 80 Hounsfield units on arterial phase, an 83 also units on portal venous phase images. There is a left renal superior pole 7 x 7 x 7 mm hypodense lesion without calcification or definite arterial enhancing component. No other renal lesions are identified. There is no hydronephrosis . Mild medullary nephrocalcinosis is seen bilaterally. Two renal arteries are seen on the right. A single left renal artery is seen. There are mild calcifications at bilateral renal artery origins, left greater than right. No renal artery stenosis or aneurysm is identified. Bilateral renal veins are patent. Mild perinephric fat stranding is nonspecific. Symmetric excretion of contrast is seen from bilateral kidneys. The liver, spleen, gallbladder, right adrenal and pancreas are within normal limits.. Left adrenal gland hypertrophy is seen. No lymphadenopathy is seen. No free air or fluid is identified. No osseous destructive lesions are seen. IMPRESSION: 1. 1.9 cm hyperdense left renal exophytic lesion likely represents a hemorrhagic cyst , proteinaceous cyst, or cyst with milk of calcium. No suspicious renal lesions seen. 2. 7 mm left renal superior pole hypodensity is too small to adequately characterize, however, it probably represents a small cyst. 3. Mild medullary nephrocalcinosis seen bilaterally. 4. Left colon diverticulosis without diverticulitis. 5. Small fat containing ventral hernia. SL: 13 08/03/2014 - - Read by: Tamika Najera MD Dictated Date/time: 08/03/14 09:48 Electronically Signed by: Tamika Najera MD 08/03/14 10:34 FINAL REPORT [facility] Vital Signs Vital Sign Value Date Comments Source Respitory Rate 18 05/27/2017 [facility] Temperature Oral (F) 98.4 F 05/27/2017 [facility] Systolic (mm Hg) 124 05/27/2017 [facility] Diastolic (mm Hg) 78 05/27/2017 [facility] Heart Rate 82 05/27/2017 [facility] Temperature Oral (F) 98.7 F 05/27/2017 [facility] Respitory Rate 18 05/27/2017 [facility] Heart Rate 86 05/27/2017 [facility] Systolic (mm Hg) 113 05/27/2017 [facility] Diastolic (mm Hg) 72 05/27/2017 [facility] Systolic (mm Hg) 112 05/27/2017 [facility] Diastolic (mm Hg) 69 05/27/2017 [facility] Respitory Rate 16 05/27/2017 [facility] Heart Rate 92 05/27/2017 [facility] Temperature Oral (F) 99.3 F 05/27/2017 [facility] Weight 77.756 05/26/2017 [facility] BMI Calculated 26.85 05/26/2017 [facility] Height 170.18 cm 05/26/2017 [facility] Height 167.64 cm 05/26/2017 [facility] Weight 81.818 05/26/2017 [facility] BMI Calculated 29.11 05/26/2017 [facility] Systolic (mm Hg) 159 01/30/2016 [facility] Diastolic (mm Hg) 98 01/30/2016 [facility] Respitory Rate 14 01/30/2016 [facility] Systolic (mm Hg) 146 01/30/2016 [facility] Diastolic (mm Hg) 83 01/30/2016 [facility] Respitory Rate 15 01/30/2016 [facility] Respitory Rate 18 01/30/2016 [facility] Systolic (mm Hg) 150 01/30/2016 [facility] Diastolic (mm Hg) 84 01/30/2016 [facility] Height 170.18 cm 01/23/2016 [facility] Weight 81.818 01/23/2016 [facility] BMI Calculated 28.25 01/23/2016 [facility] Temperature Oral (F) 97.7 F 01/23/2016 [facility] Heart Rate 66 01/23/2016 [facility] Encounters Location Location Details Encounter Type Encounter Number Reason For Visit Attending Provider ADM Date DC Date Status Source [facility] Outpatient [id number] [facility] Vemana 08/03/2014 08/04/2014 [facility] Day Surgery [id number] [facility] Vemana 01/30/2016 01/30/2016 [facility] Observation [id number] Mariaelena Pettit 05/26/2017 05/27/2017 [facility] [id number] Merissa Palvadi 06/28/2018 06/29/2018 [facility] [id number] Merissa Palvadi 07/05/2018 07/06/2018 [facility] Procedures Procedure Code Date Perfomer Comments Source Operation [id number] [facility] Tonsillectomy [id number] [facility] Operation [id number] [facility] Tonsillectomy [id number] [facility] Operation [id number] [facility] Tonsillectomy [id number] [facility]
--- OUTSIDE RECORDS SUMMARY | 2018-10-13 06:22 | XMS REPORT | Summary of Care ---
Author Author [facility] Organization [facility] Address Unknown Phone Unavailable Encounter ANICETO Blandon(JUANJOSE) [id number] Date(s): 05/26/17 - 05/27/17 [facility] [address] [place] [address]- Discharge Disposition: Home or Self Care Attending Physician: Mariaelena Pettit MD Admitting Physician: Mariaelena Pettit MD Vital Signs 1 2 3 Most recent to oldest [Reference Range]: 170.18 cm (05/26/17 4:04 PM) 167.64 cm (05/26/17 11:32 AM) Height 98.4 DegF (05/27/17 3:18 PM) 98.7 DegF (05/27/17 11:10 AM) 99.3 DegF *HI* (05/27/17 6:58 AM) Temperature Oral [96.4-99.1 DegF] 124/78 mmHg (05/27/17 3:18 PM) 113/72 mmHg (05/27/17 11:10 AM) 112/69 mmHg (05/27/17 6:58 AM) Blood Pressure [90-140/60-90 mmHg] 18 BRMIN (05/27/17 3:18 PM) 18 BRMIN (05/27/17 11:10 AM) 16 BRMIN (05/27/17 6:58 AM) Respiratory Rate [14-20 BRMIN] 82 bpm (05/27/17 3:18 PM) 86 bpm (05/27/17 11:10 AM) 92 bpm (05/27/17 6:58 AM) Peripheral Pulse Rate [60-100 bpm] 77.756 kg (05/26/17 4:04 PM) 81.818 kg (05/26/17 11:32 AM) Weight 26.85 m2 (05/26/17 4:04 PM) 29.11 m2 (05/26/17 11:32 AM) Body Mass Index Problem List Condition Effective Dates Status Health Status Informant BPH (benign Active prostatic hyperplasia)(Confirm ed) Hypercholesterolemia Resolved (Confirmed) Neuropathic Resolved pain(Confirmed) Allergies, Adverse Reactions, Alerts Substance Reaction Severity Status NKDA Active Medications acetaminophen 650 mg, 2 tab, Route: PO, Drug form: TAB, Q4H, Dosing Weight 81.818, kg, PRN Shanthi n 1-3/Temp > 100.4 F, Start date: 05/26/17 14:18:00 BROOD STATION MANAGER, Duration: 30 day, Stop date: 06/25/17 14:17:00 BROOD STATION MANAGER Notes: Do not exceed 4 gm/day. (Same as: Tylenol) Start Date: 05/26/17 Stop Date: 05/27/17 Status: Discontinued acetaminophen-hydrocodone 325 mg-5 mg oral tablet 1 tab, Route: PO, Drug Form: TAB, Dosing Weight 81.818, kg, Q4H, PRN Pain Score 4-6, Start date: 05/26/17 14:18:00 BROOD STATION MANAGER, Duration: 30 day, Stop date: 06/25/17 14 :17:00 BROOD STATION MANAGER Notes: (Same as: Danube 325/5) Do not exceed 4gm/day of acetaminophen. Start Date: 05/26/17 Stop Date: 05/27/17 Status: Discontinued aspirin 81 mg, 1 tab, Route: PO, Drug form: ECTAB, Daily, Dosing Weight 81.818, kg, Star t date: 05/26/17 16:30:00 BROOD STATION MANAGER, Duration: 30 day, Stop date: 06/25/17 9:00:00 BROOD STATION MANAGER Notes: Do not crush or chew.(Same As: Ecotrin) Start Date: 05/26/17 Stop Date: 05/27/17 Status: Discontinued aspirin 81 mg tablet, enteric coated 81 mg=1 tab, PO, Daily, # 100 tab, 0 Refill(s) Start Date: 05/27/17 Status: Ordered docusate 100 mg, 1 cap, Route: PO, Drug form: CAP, BID, Dosing Weight 81.818, kg, Start d ate: 05/26/17 17:00:00 BROOD STATION MANAGER, Duration: 30 day, Stop date: 06/25/17 9:00:00 BROOD STATION MANAGER Notes: (Same as: Colace) (Do Not Crush) Start Date: 05/26/17 Stop Date: 05/27/17 Status: Discontinued gabapentin 100 mg oral capsule 100 mg, 1 cap, Route: PO, Drug form: CAP, BID, Dosing Weight 77.756, kg, Start d ate: 05/27/17 17:00:00 BROOD STATION MANAGER, Duration: 30 day, Stop date: 06/26/17 9:00:00 BROOD STATION MANAGER Notes: (Same as: Neurontin) Start Date: 05/27/17 Stop Date: 05/27/17 Status: Canceled gabapentin 100 mg oral capsule 100 mg=1 cap, PO, BID, # 90 cap, 1 Refill(s) Start Date: 05/26/17 Status: Ordered hydrALAZINE 10 mg, 0.5 mL, Route: IVP, Drug form: INJ, Q4H, Dosing Weight 81.818, kg, PRN Hy pertension, Start date: 05/26/17 15:01:00 BROOD STATION MANAGER, Duration: 30 day, Stop date: 06/01 11/15 15:00:00 BROOD STATION MANAGER Notes: (Same as: Apresoline)Push over 5 minutes Start Date: 05/26/17 Stop Date: 05/27/17 Status: Discontinued metoprolol 5 mg/5 ml INJ 5 mg, 5 mL, Route: IVP, Drug form: INJ, Q6H, Dosing Weight 81.818, kg, PRN Tachy cardia, Start date: 05/26/17 15:01:00 BROOD STATION MANAGER, Duration: 30 day, Stop date: 06/25/17 15:00:00 BROOD STATION MANAGER Notes: (Same as: Lopressor)Push over 2 minutes Start Date: 05/26/17 Stop Date: 05/27/17 Status: Discontinued morphine Sulfate 2 mg, 1 mL, Route: IVP, Drug form: SOLN, Q4H, Dosing Weight 81.818, kg, PRN Pain Score 7-10, Start date: 05/26/17 14:18:00 BROOD STATION MANAGER, Duration: 30 day, Stop date: 14:17:00 BROOD STATION MANAGER Start Date: 05/26/17 Stop Date: 05/27/17 Status: Discontinued multivitamin 1 tab, Route: PO, Dosing Weight 77.756, kg, Daily, Start date: 05/28/17 9:00:00 BROOD STATION MANAGER, Duration: 30 day, Stop date: 06/26/17 9:00:00 BROOD STATION MANAGER Start Date: 05/28/17 Stop Date: 05/27/17 Status: Deleted multivitamin with minerals 1 tab, Route: PO, Drug Form: TAB, Daily, Start date: 05/27/17 10:00:00 BROOD STATION MANAGER, Dura tion: 30 day, Stop date: 06/26/17 9:00:00 BROOD STATION MANAGER Notes: (Same as:Alfreda-M, Gerardo-M)WASTE: F/P - Black; E - Municipal Trash Bin Give with food. Start Date: 05/27/17 Stop Date: 05/27/17 Status: Discontinued nitroglycerin 0.4 mg sublingual tablet 0.4 mg, 1 tab, Route: SL, Drug form: TAB, Q5Min, Dosing Weight 81.818, kg, PRN C hest Pain, Start date: 05/26/17 15:01:00 BROOD STATION MANAGER, Duration: 30 day, Stop date: 06/25 15:00:00 BROOD STATION MANAGER Notes: (Same as:Nitroquick, Nitrostat)"Do Not Crush" Sublingual tablet Start Date: 05/26/17 Stop Date: 05/27/17 Status: Discontinued NS (Bolus) IV 1,000 mL, 1,000 ml/hr, Infuse Over: 1 hr, Route: IV, 1,000, Drug form: INJ, ONCE , Priority: STAT, Dosing Weight 81.818 kg, Start date: 05/26/17 12:04:00 BROOD STATION MANAGER, St op date: 05/26/17 12:04:00 BROOD STATION MANAGER Start Date: 05/26/17 Stop Date: 05/26/17 Status: Completed ondansetron 4 mg, 2 mL, Route: IVP, Drug form: INJ, Q6H, Dosing Weight 81.818, kg, PRN Nause a & Vomiting, Start date: 05/26/17 14:18:00 BROOD STATION MANAGER, Duration: 30 day, Stop date: 06/25/17 14:17:00 BROOD STATION MANAGER Notes: (Same as: Anthony) MEDICATION WASTE Product Size: 4 mgProduct Was brooke: ___ mg Start Date: 05/26/17 Stop Date: 05/27/17 Status: Discontinued oxybutynin 10 mg, 1 tab, Route: PO, Drug form: ERTAB, Daily, Dosing Weight 77.756, kg, Star t date: 05/28/17 9:00:00 BROOD STATION MANAGER, Duration: 30 day, Stop date: 06/26/17 9:00:00 BROOD STATION MANAGER Notes: (Same as: Ditropan XL) "Do Not Crush" Start Date: 05/28/17 Stop Date: 05/27/17 Status: Canceled Phenergan 12.5 mg, 50 mL, Route: IVPB, Drug form: SOLN, Q6H, Dosing Weight 77.756, kg, PRN Nausea, Start date: 05/26/17 18:30:00 BROOD STATION MANAGER, Duration: 30 day, Stop date: 06/25/17 18:29:00 BROOD STATION MANAGER Start Date: 05/26/17 Stop Date: 05/27/17 Status: Discontinued zinc sulfate 220 mg, 1 cap, Route: PO, Drug form: CAP, Daily, Start date: 05/28/17 9:00:00 CS T, Duration: 30 day, Stop date: 06/26/17 9:00:00 BROOD STATION MANAGER Notes: (Zinc sulfate capsule) - 220 mg Zinc sulfate=50 mg elemental zinc Same a s Zinc Sulfate Start Date: 05/28/17 Stop Date: 05/27/17 Status: Canceled zinc sulfate 140 mg, Route: PO, Daily, Dosing Weight 77.756, kg, Start date: 05/28/17 9:00:00 BROOD STATION MANAGER, Duration: 30 day, Stop date: 06/26/17 9:00:00 BROOD STATION MANAGER Start Date: 05/28/17 Stop Date: 05/27/17 Status: Deleted Results ELECTROLYTES Most recent to 1 2 oldest [Reference Range]: Sodium Lvl [135-145 141 mEq/L 139 mEq/L mEq/L] (05/27/17 8:57 AM) (05/26/17 1:03 PM) Potassium Lvl 4.0 mEq/L 3.9 mEq/L [3.5-5.1 mEq/L] (05/27/17 8:57 AM) (05/26/17 1:03 PM) Chloride Lvl [95-109 106 mEq/L 104 mEq/L mEq/L] (05/27/17 8:57 AM) (05/26/17 1:03 PM) CO2 [24-32 mEq/L] 27 mEq/L 25 mEq/L (05/27/17 8:57 AM) (05/26/17 1:03 PM) AGAP [10.0-20.0 12.0 mEq/L 13.9 mEq/L mEq/L] (05/27/17 8:57 AM) (05/26/17 1:03 PM) CHEM PANEL Most recent to 1 2 oldest [Reference Range]: Creatinine Lvl 1.09 mg/dL 1.46 mg/dL [0.50-1.40 mg/dL] (05/27/17 8:57 AM) *HI* (05/26/17 1:03 PM) eGFR 66 mL/min/1.73m2 1 46 mL/min/1.73m2 2 *NA* *NA* (05/27/17 8:57 AM) (05/26/17 1:03 PM) BUN [7-22 mg/dL] 20 mg/dL 24 mg/dL (05/27/17 8:57 AM) *HI* (05/26/17 1:03 PM) Glucose Lvl [70-99 147 mg/dL 182 mg/dL mg/dL] *HI* *HI* (05/27/17 8:57 AM) (05/26/17 1:03 PM) Calcium Lvl 8.2 mg/dL 8.7 mg/dL [8.5-10.5 mg/dL] *LOW* (05/26/17 1:03 PM) (05/27/17 8:57 AM) Magnesium Lvl 2.0 mg/dL 2.0 mg/dL [1.8-2.4 mg/dL] (05/27/17 8:57 AM) (05/26/17 1:03 PM) Lactic Acid Lvl 1.5 mMol/L 3.1 mMol/L [0.5-2.2 mMol/L] (05/26/17 10:15 PM) *HI* (05/26/17 1:03 PM) 1Result Comment: The eGFR is calculated using the [...] from the National Kidney Disease Education Program ( NKDEP) which additionally recommends that when the eGFR is used in patients with extremes of body mass index for purposes of drug dosing, the eGFR should be mul tiplied by the estimated BMI. 2Result Comment: The eGFR is calculated using the [...] from the National Kidney Disease Education Program ( NKDEP) which additionally recommends that when the eGFR is used in patients with extremes of body mass index for purposes of drug dosing, the eGFR should be mul tiplied by the estimated BMI. CARDIAC ENZYMES Most recent to 1 2 oldest [Reference Range]: Total CK [12-191 89 unit/L unit/L] (05/26/17 1:03 PM) CK MB [0.5-3.6 1.7 ng/mL ng/mL] (05/26/17 1:03 PM) CK MB Index 1.9 [0.0-2.5] (05/26/17 1:03 PM) Troponin-I <0.02 ng/mL [0.00-0.40 ng/mL] (05/26/17 1:03 PM) LIPIDS Most recent to 1 2 oldest [Reference Range]: CHD Risk [4.00-7.30] 3.26 *LOW* (05/27/17 3:28 AM) Chol [<=199 mg/dL] 186 mg/dL (05/27/17 3:28 AM) Trig [<=149 mg/dL] 90 mg/dL (05/27/17 3:28 AM) HDL [>=61 mg/dL] 57 mg/dL *LOW* (05/27/17 3:28 AM) LDL (Calculated) 111 mg/dL [<=99 mg/dL] *HI* (05/27/17 3:28 AM) VLDL 18 *NA* (05/27/17 3:28 AM) SPECIAL CHEMISTRY Most recent to 1 2 oldest [Reference Range]: Hgb A1C [<=5.6 %] 6.3 % *HI* (05/27/17 3:28 AM) URINE AND STOOL Most recent to 1 2 oldest [Reference Range]: UA Turbidity [Clear] Clear (05/26/17 1:30 PM) UA Color [Yellow] Jocelynn *ABN* (05/26/17 1:30 PM) UA pH [5.0-8.0] 5.0 (05/26/17 1:30 PM) UA Spec Grav 1.030 [<=1.030] (05/26/17 1:30 PM) UA Glucose [Negative Negative mg/dL mg/dL] *NA* (05/26/17 1:30 PM) UA Blood [Negative] Negative (05/26/17 1:30 PM) UA Ketones [Negative Negative mg/dL mg/dL] *NA* (05/26/17 1:30 PM) UA Protein [Negative 30 mg/dL mg/dL] *ABN* (05/26/17 1:30 PM) UA Urobilinogen <=1.0 mg/dL [0.1-1.0 mg/dL] *NA* (05/26/17 1:30 PM) UA Bili [Negative] Negative *NA* (05/26/17 1:30 PM) UA Leuk Est Negative [Negative] (05/26/17 1:30 PM) UA Nitrite Negative [Negative] (05/26/17 1:30 PM) UA WBC [0-5 /HPF] 3 /HPF (05/26/17 1:30 PM) UA RBC [0-2 /HPF] 2 /HPF (05/26/17 1:30 PM) UA Sq Epi [Few /LPF] Occasional /LPF *NA* (05/26/17 1:30 PM) UA Mucus [None Seen Many /LPF /LPF] *ABN* (05/26/17 1:30 PM) HEMATOLOGY Most recent to 1 2 oldest [Reference Range]: WBC [3.7-10.4 K/CMM] 9.2 K/CMM 15.1 K/CMM (05/27/17 8:57 AM) *HI* (05/26/17 1:03 PM) RBC [4.70-6.10 4.62 M/CMM 5.09 M/CMM M/CMM] *LOW* (05/26/17 1:03 PM) (05/27/17 8:57 AM) Hgb [14.0-18.0 g/dL] 14.9 g/dL 16.0 g/dL (05/27/17 8:57 AM) (05/26/17 1:03 PM) Hct [42.0-54.0 %] 42.3 % 46.7 % (05/27/17 8:57 AM) (05/26/17 1:03 PM) MCV [80.0-94.0 fL] 91.5 fL 91.7 fL (05/27/17 8:57 AM) (05/26/17 1:03 PM) MCH [27.0-31.0 pg] 32.3 pg 31.5 pg *HI* *HI* (05/27/17 8:57 AM) (05/26/17 1:03 PM) MCHC [32.0-36.0 35.3 g/dL 34.3 g/dL g/dL] (05/27/17 8:57 AM) (05/26/17 1:03 PM) RDW [11.5-14.5 %] 13.5 % 13.4 % (05/27/17 8:57 AM) (05/26/17 1:03 PM) Platelet [133-450 183 K/CMM 239 K/CMM K/CMM] (05/27/17 8:57 AM) (05/26/17 1:03 PM) MPV [7.4-10.4 fL] 6.9 fL 6.8 fL *LOW* *LOW* (05/27/17 8:57 AM) (05/26/17 1:03 PM) Segs [45.0-75.0 %] 75.4 % 91.4 % *HI* *HI* (05/27/17 8:57 AM) (05/26/17 1:03 PM) Lymphocytes 10.3 % 2.3 % [20.0-40.0 %] *LOW* *LOW* (05/27/17 8:57 AM) (05/26/17 1:03 PM) Monocytes [2.0-12.0 13.7 % 6.0 % %] *HI* (05/26/17 1:03 PM) (05/27/17 8:57 AM) Eosinophils [0.0-4.0 0.4 % 0.1 % %] (05/27/17 8:57 AM) (05/26/17 1:03 PM) Basophils [0.0-1.0 0.2 % 0.2 % %] (05/27/17 8:57 AM) (05/26/17 1:03 PM) Segs-Bands # 6.9 K/CMM 13.8 K/CMM [1.5-8.1 K/CMM] (05/27/17 8:57 AM) *HI* (05/26/17 1:03 PM) Lymphocytes # 0.9 K/CMM 0.3 K/CMM [1.0-5.5 K/CMM] *LOW* *LOW* (05/27/17 8:57 AM) (05/26/17 1:03 PM) Monocytes # [0.0-0.8 1.3 K/CMM 0.9 K/CMM K/CMM] *HI* *HI* (05/27/17 8:57 AM) (05/26/17 1:03 PM) RBC Morph Normal (05/26/17 1:03 PM) Plt Morph Normal (05/26/17 1:03 PM) Immunizations No data available for this section Procedures Procedure Date Related Diagnosis Body Site Operation Operation Tonsillectomy Social History Social History Type Response Substance Abuse Use: None. Alcohol Never, Previous treatment: None. Smoking Status Never smoker; Exposure to Tobacco Smoke None; Cigarette Smoking Last 365 Days No; Reg Smoking Cessation Counseling No Assessment and Plan Extracted from: Title: Discharge Summary * Author: Mariaelena Pettit MD Date: 05/27/17 Discharge Plan Discharge Summary Plan Discharge Status: stable. Discharge disposition: discharge to home. seeMAR f/u with PCP Extracted from: Title: Neurology Note * Author: Paco Reese MD Date: 05/27/17 Impression and Plan IMPRESSION: 1. Ataxia with recurrent falls and closed head injury, possibly due to dehydration. He has had bouts of diarrhea, nausea and vomiting x 1 today. However, TIAs in posterior circulation should be ruled out. 2. Acute kidney injury with elevated creatinine, resolved. 3. Leukocytosis, resolved, rule out underlying infection. He has had diarrhea, so gastroenteritis is a possibility of focal colitis. 4. 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 RECOMMENDATIONS: 1. Ok to d/c home with neuro standpoint 2. Continue statin. 3. Continue aspirin 81 mg daily. 4. Discussed with the family at the bedside.
--- OUTSIDE RECORDS SUMMARY | 2018-10-13 06:22 | XMS REPORT | Summary of Care ---
Author Organization Unknown Address Unknown Phone Unavailable Encounter [facility] Encntr_alimari(JUANJOSE) [id number] Date(s): 08/03/14 - 08/03/[address] [facility] [address] [place] [address]- Discharge Disposition: Home Physician Attending: Dar Erwin MD Physician_Referring: Dar Erwin MD Vital Signs No data available for this section Problem List No data available for this section Allergies, Adverse Reactions, Alerts No data available for this section Medications No data available for this section Results No data available for this section Immunizations No data available for this section Procedures No data available for this section Social History No data available for this section Assessment and Plan No data available for this section
--- OUTSIDE RECORDS SUMMARY | 2018-10-13 06:22 | XMS REPORT | Summary of Care ---
Author Author [facility] Organization [facility] Address Unknown Phone Unavailable Encounter HQ Rodolfo_marlyn(FIN) [id number] Date(s): 07/05/18 - 07/05/18 [facility] Out[facility] [address] [place], [place] [address] [id number] Discharge Disposition: Home or Self Care Attending Physician: Merissa Amaya MD Referring Physician: Merissa Amaya MD Vital Signs No data available for this section Problem List Condition Effective Dates Status Health Status Informant BPH (benign Active prostatic hyperplasia)(Confirm ed) Hypercholesterolemia Resolved (Confirmed) Neuropathic Resolved pain(Confirmed) Allergies, Adverse Reactions, Alerts Substance Reaction Severity Status NKDA Active Medications No data available for this section Results No data available for this section Immunizations No data available for this section Procedures Procedure Date Related Diagnosis Body Site Status Operation Completed Operation Completed Tonsillectomy Completed Social History Social History Type Response Substance Abuse Use: None. Alcohol Never, Previous treatment: None. Smoking Status Never smoker; Exposure to Tobacco Smoke None; Cigarette Smoking Last 365 Days No; Reg Smoking Cessation Counseling No entered on: 05/26/17 Assessment and Plan No data available for this section
--- OUTSIDE RECORDS SUMMARY | 2018-10-13 06:22 | XMS REPORT | Summary of Care ---
Author Author [facility] Organization [facility] Address Unknown Phone Unavailable Encounter ANICETO Blandon(JUANJOSE) [id number] Date(s): 01/30/16 - 01/30/16 [facility] [address] [place] [address]- Discharge Disposition: Home or Self Care Attending Physician: Dar Erwin MD Referring Physician: Dar Erwin MD Vital Signs 1 2 3 Most recent to oldest [Reference Range]: 170.18 cm (01/23/16 11:16 AM) Height 97.7 DegF (01/23/16 11:16 AM) Temperature Oral [96.4-99.1 DegF] 159/98 mmHg *HI* (01/30/16 3:30 PM) 146/83 mmHg *HI* (01/30/16 2:30 PM) 150/84 mmHg *HI* (01/30/16 2:15 PM) Blood Pressure [90-140/60-90 mmHg] 14 BRMIN (01/30/16 3:30 PM) 15 BRMIN (01/30/16 2:30 PM) 18 BRMIN (01/30/16 2:15 PM) Respiratory Rate [14-20 BRMIN] 66 bpm (01/23/16 11:16 AM) Peripheral Pulse Rate [60-100 bpm] 81.818 kg (01/23/16 11:16 AM) Weight 28.25 m2 (01/23/16 11:16 AM) Body Mass Index Problem List Condition Effective Dates Status Health Status Informant BPH (benign Active prostatic hyperplasia)(Confirm ed) Allergies, Adverse Reactions, Alerts Substance Reaction Severity Status NKDA Active Medications acetaminophen (ANES) (ANES) Route: IV, Drug form: INJ, Start date: 01/30/16 10:35:00 CDT, Stop date: 09/01/1 6 11:35:00 CDT Start Date: 01/30/16 Stop Date: 01/30/16 Status: Completed Calcium 500+D 1 tab, CHEW, BID, 0 Refill(s) Start Date: 01/23/16 Status: Ordered ciprofloxacin (ANES) Route: IV, Drug form: INJ, ONCE, Stop date: 01/30/16 11:11:00 CDT Start Date: 01/30/16 Stop Date: 01/30/16 Status: Completed dexamethasone (ANES) Route: IV, Drug form: INJ, ONCE, Stop date: 01/30/16 11:11:00 CDT Start Date: 01/30/16 Stop Date: 01/30/16 Status: Completed fentaNYL (ANES) Route: IV, Drug form: INJ, ONCE, Stop date: 01/30/16 11:06:00 CDT Start Date: 01/30/16 Stop Date: 01/30/16 Status: Completed Fish Oil PO, 0 Refill(s) Start Date: 01/23/16 Status: Ordered Lactated Ringers Injection IV 1000 mL 1,000 mL, Rate: 25 ml/hr, Infuse over: 40 hr, Route: IV, Dosing Weight 81.818 kg , Total Volume: 1,000, Start date: 01/30/16 9:26:00 CDT, Duration: 30 day, Stop date: 02/29/16 9:25:00 CDT Start Date: 01/30/16 Stop Date: 01/30/16 Status: Discontinued lidocaine (ANES) Route: IV, Drug form: INJ, ONCE, Stop date: 01/30/16 11:11:00 CDT Start Date: 01/30/16 Stop Date: 01/30/16 Status: Completed LR 1000 mL INJ (ANES) Route: IV, Total Volume: 1,000, Start date: 01/30/16 10:17:00 CDT, Stop date: 11:17:00 CDT Start Date: 01/30/16 Stop Date: 01/30/16 Status: Completed lysine 1,000 mg, PO, Daily, 0 Refill(s) Start Date: 01/23/16 Status: Ordered metroNIDAZOLE topical 0.75% gel 0 Refill(s) Start Date: 01/23/16 Status: Ordered midazolam (ANES) Route: IV, Drug form: SOLN, ONCE, Stop date: 01/30/16 11:06:00 CDT Start Date: 01/30/16 Stop Date: 01/30/16 Status: Completed multivitamin Daily, 0 Refill(s) Start Date: 01/23/16 Status: Ordered ondansetron (ANES) Route: IV, Drug form: INJ, ONCE, Stop date: 01/30/16 11:11:00 CDT Start Date: 01/30/16 Stop Date: 01/30/16 Status: Completed oxybutynin 10 mg oral tablet, extended release 10 mg=1 tab, PO, Daily, # 30 tab, 1 Refill(s) Start Date: 01/30/16 Status: Ordered propofol (ANES) Route: IV, Drug form: INJ, ONCE, Stop date: 01/30/16 11:06:00 CDT Start Date: 01/30/16 Stop Date: 01/30/16 Status: Completed Pyridium 200 mg oral tablet 200 mg=1 tab, PO, Q6H, PRN Dysuria, # 28 tab, 1 Refill(s) Start Date: 01/30/16 Stop Date: 01/30/16 Status: Discontinued Pyridium 200 mg oral tablet 200 mg=1 tab, PO, Q6H, PRN Dysuria, X 7 day, # 28 tab, 1 Refill(s) Start Date: 01/30/16 Stop Date: 02/13/16 Status: Ordered simvastatin PO, Bedtime, 0 Refill(s) Start Date: 01/23/16 Status: Ordered tamsulosin 0.4 mg oral capsule 0.4 mg=1 cap, PO, Daily, # 30 cap, 0 Refill(s) Start Date: 01/23/16 Status: Ordered Tylenol with Codeine #3 oral tablet 1 - 2 tab, PO, Q4H, PRN Pain, X 2 day, # 20 tab, 0 Refill(s) Start Date: 01/30/16 Stop Date: 02/01/16 Status: Completed Tylenol with Codeine #3 oral tablet 1 - 2 tab, PO, Q4H, PRN Pain, # 20 tab, 0 Refill(s) Start Date: 01/30/16 Stop Date: 01/30/16 Status: Discontinued Zinc 140 mg, PO, Daily, 0 Refill(s) Start Date: 01/23/16 Status: Ordered Results ELECTROLYTES Most recent to 1 oldest [Reference Range]: Sodium Lvl [135-145 138 mEq/L mEq/L] (01/23/16 12:03 PM) Potassium Lvl 3.9 mEq/L [3.5-5.1 mEq/L] (01/23/16 12:03 PM) Chloride Lvl [95-109 103 mEq/L mEq/L] (01/23/16 12: PM) CO2 [24-32 mEq/L] 28 mEq/L (01/23/16 12: PM) AGAP [10.0-20.0 10.9 mEq/L mEq/L] (01/23/16: PM) CHEM PANEL Most recent to 1 oldest [Reference Range]: Creatinine Lvl 1.12 mg/dL [0.50-1.40 mg/dL] (01/23/16 12:03 PM) eGFR 65 mL/min/1.73m2 1 *NA* (01/23/16: PM) BUN [7-22 mg/dL] 20 mg/dL (01/23/16 12: PM) Glucose Lvl [70-99 95 mg/dL mg/dL] (01/23/16 12: PM) Total Protein 7.4 g/dL [6.4-8.4 g/dL] (01/23/16 12:03 PM) Albumin Lvl [3.5-5.0 3.5 g/dL g/dL] (01/23/16 12:03 PM) Globulin [2.7-4.2 3.9 g/dL g/dL] (01/23/16 12: PM) A/G Ratio [0.7-1.6] 0.9 (01/23/16 12:03 PM) Calcium Lvl 8.9 mg/dL [8.5-10.5 mg/dL] (01/23/16 12:03 PM) ALT [0-65 unit/L] 25 unit/L (01/23/16 12:03 PM) AST [0-37 unit/L] 19 unit/L (01/23/16 12:03 PM) Alk Phos [39-136 67 unit/L unit/L] (01/23/16 12:03 PM) Bili Total [0.2-1.3 0.9 mg/dL mg/dL] (01/23/16 12:03 PM) Bili Direct [0.0-0.3 0.2 mg/dL mg/dL] (01/23/16 12:03 PM) Bili Indirect 0.7 mg/dL [0.0-1.0 mg/dL] (01/23/16 12:03 PM) 1Result Comment: The eGFR is calculated [...] be mul tiplied by the estimated BMI. URINE AND STOOL Most recent to 1 oldest [Reference Range]: UA Turbidity [Clear] Clear (01/23/16 12:03 PM) UA Color [Yellow] Yellow *NA* (01/23/16 12:03 PM) UA pH [5.0-8.0] 6.0 (01/23/16 12:03 PM) UA Spec Grav 1.019 [<=1.030] (01/23/16 12:03 PM) UA Glucose [Negative Negative mg/dL mg/dL] *NA* (01/23/16 12:03 PM) UA Blood [Negative] Negative (01/23/16 12:03 PM) UA Ketones [Negative Negative mg/dL mg/dL] *NA* (01/23/16 12:03 PM) UA Protein [Negative Negative mg/dL mg/dL] (01/23/16 12:03 PM) UA Urobilinogen <=1.0 mg/dL [0.1-1.0 mg/dL] *NA* (01/23/16 12:03 PM) UA Bili [Negative] Negative *NA* (01/23/16 12:03 PM) UA Leuk Est Small [Negative] *ABN* (01/23/16 12:03 PM) UA Nitrite Negative [Negative] (01/23/16 12:03 PM) UA WBC [0-5 /HPF] 47 /HPF *HI* (01/23/16 12:03 PM) UA RBC [0-2 /HPF] 1 /HPF (01/23/16 12:03 PM) UA Bacteria [None Many /HPF Seen /HPF] *ABN* (01/23/16 12:03 PM) UA Sq Epi None Seen *NA* (01/23/16 12:03 PM) UA Amorph Laly [None Occasional /HPF Seen /HPF] *NA* (01/23/16 12:03 PM) UA Mucus [None Seen Few /LPF /LPF] *NA* (01/23/16 12:03 PM) HEMATOLOGY Most recent to 1 oldest [Reference Range]: WBC [3.7-10.4 K/CMM] 8.4 K/CMM (01/23/16 12:03 PM) RBC [4.70-6.10 4.66 M/CMM M/CMM] *LOW* (01/23/16 12:03 PM) Hgb [14.0-18.0 g/dL] 14.6 g/dL (01/23/16 12:03 PM) Hct [42.0-54.0 %] 42.5 % (01/23/16 12:03 PM) MCV [80.0-94.0 fL] 91.2 fL (01/23/16 12:03 PM) MCH [27.0-31.0 pg] 31.4 pg *HI* (01/23/16 12:03 PM) MCHC [32.0-36.0 34.4 g/dL g/dL] (01/23/16 12:03 PM) RDW [11.5-14.5 %] 12.8 % (01/23/16 12:03 PM) Platelet [133-450 198 K/CMM K/CMM] (01/23/16 12:03 PM) MPV [7.4-10.4 fL] 7.0 fL *LOW* (01/23/16 12:03 PM) Segs [45.0-75.0 %] 55.5 % (01/23/16 12:03 PM) Lymphocytes 24.4 % [20.0-40.0 %] (01/23/16 12:03 PM) Monocytes [2.0-12.0 16.9 % %] *HI* (01/23/16:03 PM) Eosinophils [0.0-4.0 2.7 % %] (01/23/16 12:03 PM) Basophils [0.0-1.0 0.5 % %] (01/23/16 12:03 PM) Segs-Bands # 4.7 K/CMM [1.5-8.1 K/CMM] (01/23/16 12:03 PM) Lymphocytes # 2.1 K/CMM [1.0-5.5 K/CMM] (01/23/16 12:03 PM) Monocytes # [0.0-0.8 1.4 K/CMM K/CMM] *HI* (01/23/16 12:03 PM) Eosinophils # 0.2 K/CMM [0.0-0.5 K/CMM] (01/23/16 12:03 PM) PT [12.0-14.7 14.0 seconds seconds] (01/23/16 12:03 PM) INR [0.85-1.17] 1.05 (01/23/16 12:03 PM) PTT [22.9-35.8 35.5 seconds seconds] (01/23/16 12:03 PM) Immunizations No data available for this section Procedures Procedure Date Related Diagnosis Body Site Operation Operation Tonsillectomy Social History Social History Type Response Substance Abuse Use: None. Alcohol Never, Previous treatment: None. Smoking Status Never smoker; Exposure to Tobacco Smoke None; Cigarette Smoking Last 365 Days No; Reg Smoking Cessation Counseling No Assessment and Plan No data available for this section
--- OUTSIDE RECORDS SUMMARY | 2018-10-13 06:22 | XMS REPORT | Summary of Care ---
Author Author [facility] Organization [facility] Address Unknown Phone Unavailable Encounter HQ Darrinr_marlyn(FIN) [id number] Date(s): 06/28/18 - 06/28/18 [facility] [address] [place], [place] [phone] [phone] Discharge Disposition: Home or Self Care Attending [...]
[2018-10-13 10:40] VITALS: BP 129/60
== END | disposition home or self-care (01) ==
LOC: OR 06:16
PROVIDERS: ATTEND Internal Medicine Gastroenterology
DX: K92.1 Melena (principal); D12.2 Benign neoplasm of ascending colon; D12.3 Benign neoplasm of transverse colon; K64.8 Other hemorrhoids; Z71.3 Dietary counseling and surveillance; E66.3 Overweight; I44.7 Left bundle-branch block, unspecified; Z01.810 Encounter for preprocedural cardiovascular examination; Z01.812 Encounter for preprocedural laboratory examination; Z68.28 Body mass index [BMI] 28.0-28.9, adult; Z86.73 Personal history of transient ischemic attack (TIA), and cerebral infarction without residual deficits
CPT/HCPCS: 36415; 45385; 80053; 85025; 85610; 85730; 93005; J2704